=== PATIENT | male | born 1935 ===

== ENCOUNTER 2019-05-24 19:33 | Emergency (ER) | payer MEDICARE ==
--- NOTE | 2019-05-24 20:26 | RAD ---
AP PELVIS: 05/24/19 INDICATIONS: Fall. Pelvis appears intact. Hips appear intact. Numerous prostatic seed implants noted. Sacrum is obscure d by bowel content. IMPRESSION: No acute fracture identified. POS: AGW
--- NOTE | 2019-05-24 20:28 | RAD ---
AP CHEST: 05/24/19 HISTORY: Fall. No comparison. Heart size is upper normal. Mild vascular and interstitial prominence may represent mild congestion. Left basilar atelectasis or infiltrate may be present. Lungs otherwise appear clear. IMPRESSION: Evidence of mild vascular and interstitial congestion. Left basilar atelectasis or infiltrate cannot be excluded. POS: AGW
--- NOTE | 2019-05-24 21:46 | CT ---
NONCONTRAST CT HEAD: 05/24/19 HISTORY: Post fall. Injury after a fall. COMPARISON: None. 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 Areas of diminished attenuation are seen in the per iventricular white matter which are nonspecific but likely reflective of chronic small vessel ischemi c changes. Mild cerebral volume loss is present. There is no evidence of an acute cortical infarction, hemorrhage, mass effect, or midline shift. The ventricular system is normal in size, shape and position for the degree of sulcal atrophy. The visualized paranasal sinuses and mastoid air cells are clear. 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 Calvarial structures have a normal appearance. IMPRESSION: 1. No acute intracranial abnormalities demonstrated. 2. 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 3. Chronic small vessel ischemic changes and cerebral volume loss. POS: CATARINO
== END 2019-05-24 21:36 | disposition home or self-care (01) ==
LOC: BURERS 19:33
DX: S00.03XA Contusion of scalp, initial encounter (principal); S90.415A Abrasion, left lesser toe(s), initial encounter; I25.2 Old myocardial infarction; I25.10 Atherosclerotic heart disease of native coronary artery without angina pectoris; I25.118 Atherosclerotic heart disease of native coronary artery with other forms of angina pectoris; I48.91 Unspecified atrial fibrillation; I50.9 Heart failure, unspecified; N40.0 Benign prostatic hyperplasia without lower urinary tract symptoms; F43.20 Adjustment disorder, unspecified; F41.9 Anxiety disorder, unspecified; F32.9 Major depressive disorder, single episode, unspecified; Z79.899 Other long term (current) drug therapy; Z79.2 Long term (current) use of antibiotics; Z79.01 Long term (current) use of anticoagulants; Z86.718 Personal history of other venous thrombosis and embolism; W06.XXXA Fall from bed, initial encounter
CPT/HCPCS: 70450; 71045; 72170